=== PATIENT | male | born 1950 | race Caucasian/White ===

== ENCOUNTER 2016-09-15 06:40 | Inpatient (IN) | payer OTHER ==
[2016-09-15] MEDS ORDERED: LACTATED RINGERS 2,000 ML ONE (06:58)
[2016-09-15 07:24] LABS: ABSOLUTE NEUTROPHIL COUNT 13.5 K/mm3 (1.8-7.7); BASO # 0.1 K/mm3 (0.0-0.2); BASO % 0.3 % (0.2-1.0); HEMATOCRIT 43.7 % (32.0-52.0); HEMOGLOBIN 14.9 gm/l (14.0-18.0); IMM NEUT # 0.1 K/mm3 (0-0.2); IMM NEUT% 0.5 % (0-1); LYMPH # 2.1 (1.0-4.8); LYMPH % 12.9 % (15-45); MEAN CELL VOLUME 90.9 fl (80.0-94.0); MEAN CORPUSCULAR HGB CONC 34.1 g/dl (33.0-37.0); MEAN PLATELET VOLUME 9.8 fl (7.4-10.4); MONO # 0.9 (0.0-0.8); MONO % 5.2 % (4-12); NEUT % 81.1 % (43-75); PLATELET COUNT 335 K/mm3 (130-400); RED CELL DISTRIBUTION WIDTH 12.9 % (11.5-14.5); SPECIFIC GRAVITY 1.025 (1.001-1.030); URINE BILIRUBIN NEGATIVE (NEGATIVE); URINE BLOOD 2+ (NEGATIVE); URINE GLUCOSE (UA) NEGATIVE (NEGATIVE); URINE LEUKOCYTE ESTERASE TRACE (NEGATIVE); URINE NITRITE NEGATIVE (NEGATIVE); URINE PROTEIN 1+ (NEGATIVE); URINE UROBILINOGEN NORMAL (0-1 mg/dl)
[2016-09-15 07:26] LABS: URINE APPEARANCE CLEAR; URINE COLOR AMBER
[2016-09-15 07:31] LABS: URINE BACTERIA 2+; URINE MUCUS 1+
[2016-09-15 07:32] LABS: URINE AMORPHOUS SEDIMENT FEW
[2016-09-15 07:35] LABS: INR 1.43; PROTHROMBIN TIME 15.3 SECONDS (9.3-11.4)
[2016-09-15 07:41] LABS: ALB/GLOB RATIO 1.3 (>1.0); ALBUMIN 4.3 gm/dL (3.5-5.7); CALCIUM 9.2 mg/dL (8.6-10.3)
--- NOTE | 2016-09-15 08:19 | RAD ---
Exam: Portable chest COMPARISON: None INDICATION: Fever and vomiting. FINDINGS: Semierect AP portable view of the chest demonstrates low lung volumes, precluding evaluation of the lung bases. Cardiac silhouette appears to be within normal limits. Upper lungs are clear. Bones of the chest wall within normal limits. There is no free air under the diaphragm. IMPRESSION: No acute pulmonary process.
[2016-09-15] MEDS ORDERED: IOPAMIDOL 300 (61%) 150 ML VIAL IV ONE (09:36)
--- NOTE | 2016-09-15 10:18 | CT ---
Exam: CT abdomen and pelvis with contrast COMPARISON: Chest radiograph same day. INDICATION: Vomiting and fever. TECHNIQUE: CT examination of the abdomen and pelvis was obtained following the administration 125 mL Isovue-300 intravenous contrast. FINDINGS: Examination is slightly limited due to motion artifact. There is a focus of airspace disease within the left lower lobe. This was not seen on earlier chest radiograph due to hypoventilation. Correlate for signs and symptoms of pneumonia. There are subacute/healing fractures of the left anterolateral sixth and seventh ribs, lateral 10th rib and posterior 11th and 12th ribs. Subacute fractures are seen within the posterior right 11th and 12th ribs, with more chronic appearing fractures within the medial right 11th and 12th ribs. There is no pleural effusion. The rectum is significantly distended with stool. There is mild wall thickening of the rectum. There is no bowel obstruction, free air or free intraperitoneal fluid. The distal esophagus is noted to be thickened. The urinary bladder is decompressed by a Puente catheter. There is no hydronephrosis. There is minor nonspecific perinephric stranding which appears symmetric. Kidneys enhance appropriately. Subcentimeter low-density lesion is seen within the posterior upper pole the right kidney which is too small to characterize but likely a cyst. The gallbladder is absent. The liver, spleen, pancreas and adrenal glands are unremarkable. Atheromatous but nonaneurysmal abdominal aorta and iliac arteries. Old healed left anterior pubic ramus fracture is identified. Hemangioma is noted at L1, benign lesion. No worrisome lytic or blastic osseous lesion is identified. Degenerative disc disease is present at the lumbosacral junction. IMPRESSION: 1. Asymmetric airspace disease within the left lower lobe, more than expected for atelectasis, correlate for signs and symptoms of pneumonia. 2. The rectum is significantly distended with stool, however there is no evidence of bowel obstruction. Mild wall thickening of the rectum is noted compatible with proctitis. 3. Thickening of the distal esophagus. 4. Urinary bladder decompressed by a Puente catheter. No hydronephrosis. 5. Post cholecystectomy. 6. Several subacute and old rib fractures and old left inferior pubic ramus fracture. Report was uploaded to the EMR at 1014 hours 09/15/2016.
[2016-09-15] MEDS ORDERED: LEVOFLOXACIN 750 MG/D5W 150 ML 150 ML IV ONE (11:02)
[2016-09-15] MEDS ORDERED: METRONIDAZOLE 500 MG/NS 100 ML 100 ML IV ONE (11:02)
[2016-09-15] MEDS ORDERED: SODIUM CHLORIDE 0.9% 100 ML IV ONE (11:52)
[2016-09-15 13:14] VITALS: BMI 22.2
[2016-09-15] MEDS: D5 1/2NS with 20 mEq KCL 1,000 ML IV SCH (13:59)
[2016-09-15] MEDS ORDERED: MENTHOL/CETYLPYRD 1 EACH LOZENGE PO PRN (14:02)
[2016-09-15] MEDS ORDERED: SODIUM CHLORIDE 0.9% 100 ML IV PRN (14:02)
[2016-09-15] MEDS ORDERED: BLISTEX LIPSTICK 1 EACH TP PRN (14:02)
[2016-09-15] MEDS ORDERED: BISACODYL 5 MG TABLET.EC PO PRN (14:02)
[2016-09-15] MEDS ORDERED: MAGNESIUM HYDROXIDE 30 ML UDCUP PO PRN (14:02)
[2016-09-15] MEDS ORDERED: BISACODYL 10 MG SUP PR PRN (14:02)
[2016-09-15] MEDS ORDERED: ALBUTEROL/IPRATROPIUM 2.5/0.5 MG 3 ML/EACH DOSE NEB PRN (14:18)
[2016-09-15] MEDS: FLECAINIDE ACETATE 50 MG TABLET PO SCH (15:59)
[2016-09-15] MEDS: METOPROLOL TARTRATE 25 MG TABLET PO SCH ×2 (16:00→21:54)
[2016-09-15] MEDS: CARBIDOPA/LEVODOPA 25/100 1 EACH TABLET PO SCH ×2 (16:01→21:53)
[2016-09-15] MEDS: SODIUM CHLORIDE 0.9% 500 ML IV SCH ×5 (16:02→22:32)
[2016-09-15] MEDS: PANTOPRAZOLE SODIUM 40 MG VIAL IV SCH (16:04)
[2016-09-15] MEDS: ENOXAPARIN SODIUM 40 MG/0.4 ML SYRINGE SUB-Q SCH (16:04)
[2016-09-15] MEDS: OXYCODONE HCL 5 MG TABLET PO PRN (16:09)
[2016-09-15 16:22] LABS: HEMATOCRIT 36.1 % (32.0-52.0); HEMOGLOBIN 12.5 gm/l (14.0-18.0); MEAN CELL VOLUME 90.3 fl (80.0-94.0); MEAN CORPUSCULAR HEMOGLOBIN 31.3 pg (27.0-31.0); MEAN CORPUSCULAR HGB CONC 34.6 g/dl (33.0-37.0); RED CELL DISTRIBUTION WIDTH 12.8 % (11.5-14.5)
--- NOTE | 2016-09-15 16:24 | HP ---
[place] MOTA [id number] DATE OF ADMISSION: September 15, 2016 CHIEF COMPLAINT: Fever and hematemesis. HISTORY OF PRESENT ILLNESS: The patient is a 66-year-old male who is reported to have been hospitalized for influenza at [facility] and was discharged about September 11, 2016. He developed hematemesis with coffee ground appearing vomit, and was sent to [facility] Emergency Department for fever and vomiting. In the emergency room, he was noted to have elevated white count. Initial hemoccult was negative but he later had a larger volume hematemesis and some melena and this was heme positive. CT of the abdomen was done and this appeared to show a pneumonia. He was referred to the hospitalist service for further care. PAST MEDICAL HISTORY: Remarkable for: 1. Anxiety. 2. Alcohol use with quitting in 2012. 3. Hypertension. 4. Restless leg syndrome. 5. Dyslipidemia. 6. Esophagogastroduodenoscopy with a previous upper and lower endoscopy in 2013 showing some mild chronic non-atrophic gastritis. 7. Lewy body dementia with Parkinsonian features. 8. Decubitus ulcers on his buttocks and coccyx. 9. Atrial fibrillation not a candidate for anticoagulation due to his fall risk. PAST SURGICAL HISTORY: 1. Appendectomy. 2. Cholecystectomy. 3. Endoscopy showing gastritis, duodenitis but no varices. ALLERGIES: Listed as AMPICILLIN. MEDICATIONS: His home medicines from his discharge list at [facility] show: 1. Cogentin 1mg at bedtime. 2. Sinemet 25/100 half orally three times daily. 3. Cholecalciferol 50,000 orally on . 4. Diazepam 2 mg half orally at 2 p.m. and 9 p.m. 5. Tambocor 50 mg twice daily. 6. Folic acid 1 mg orally daily. 7. Prinivil 10 mg orally daily. 8. Lopressor 25 mg orally three times daily. 9. Tamiflu 75 mg orally twice daily. 10. Oxycodone 5 to 15 mg orally every four hours as needed. 11. Pyridoxine 100 mg daily. 12. Seroquel 50 mg orally twice daily. 13. Aciphex 20 mg orally daily. 14. Rozerem 8 mg orally at bedtime. 15. Rapaflo 8 mg orally daily. SOCIAL HISTORY: He is currently a resident at [facility]. He is . He has a history of alcoholism but quit a couple of years ago. FAMILY HISTORY: Not obtainable. REVIEW OF SYSTEMS: Not obtainable. PHYSICAL EXAM: GENERAL: Patient is a slightly cachectic appearing male with evidence of atrophy of muscles throughout who occasionally answers somewhat but it is uncertain if his answers are correct. He coughs occasionally but does not appear to be in any respiratory distress. VITAL SIGNS: Show temperature 100.7, pulse 92, blood pressure 130/73, respirations 22, 93% saturation on room air. HEAD: Demonstrates temporal atrophy. Eyes are unremarkable, but on exam he appears to have significant difficulty moving them not following a light for example. EARS: The right has cerumen. The left is not able to visualized due to body-wide rigidity consistent with his Parkinson's diagnose. NECK: His neck appears to be fairly stiff so a neck mobility is not able to be assessed. No masses or adenopathy. LUNGS: With slightly coarse breath sounds bilaterally. HEART: Mostly regular but distant. Difficult to auscultate. ABDOMEN: Soft, bowel sounds appear to be normal. No rebound. EXTREMITIES: His legs with atrophy noted but no edema. Heels with some diffuse erythema which is blanching, otherwise feet without ulceration. His buttocks are reported to have stage 1 to early stage 2 ulcerations in the coccyx and just to the right of the coccyx toward the buttock and some redness noted on the left. Taken from a nursing report so far. GENITOURINARY: Exam is deferred. NEUROLOGIC: His cranial nerves unable to assess. He does somewhat answer some in a difficult to understand tone. His reports this is close to baseline status. He has difficulty following commands. His right arm demonstrates a Parkinsonian tremor at rest. Some generalized rigidity is noted as well. LABORATORY: His labs showed a white blood cell count of 16.6, hemoglobin 14.9, MCV of 90.9, platelets 335. INR is 1.43. Lactate 1.7. Chemistry, sodium 141, potassium 3.3, chloride 97, carbon dioxide 27, BUN 21, creatinine 0.8, glucose 195, calcium 9.2, total bilirubin 0.8. Liver enzymes normal. Lipase 48. Urinalysis specific gravity 1.025, 1+ protein, negative glucose, 3+ ketones, 2+ blood, trace leukocyte esterase, 5 to 10 red cells, 3 to 5 white cells, 2 to 3 epithelial cells, 2+ bacteria, 1+ mucous. IMAGIN. Chest x-ray shows no acute pulmonary process. 2. However, CT of the abdomen and pelvis shows asymmetric airspace disease within the left lower lobe more than expected, correlate for signs and symptoms of pneumonia. The rectum is significantly distended with stool but no evidence of bowel obstruction. Mild wall thickening of the rectum is noted. Thickening of the distal esophagus. Urinary bladder decompressed by Puente catheter, no hydronephrosis. Post cholecystectomy and several subacute and old rib fractures and left inferior pubic ramus fracture. ELECTROCARDIOGRAM: Electrocardiogram shows atrial fibrillation, 98 beats per minute, right bundle branch block is suggested. T wave abnormalities suggested anteriorly although this is difficult to assess due to marked tremor. QRS duration 141, QTc 474, QRS axis -5. ASSESSMENT AND PLAN: 1. Pneumonia. Concern for aspiration versus hospital acquired pneumonia versus post influenza. We will continue on the Tamiflu. He was initially started on Levaquin and metronidazole in the emergency department, but we will consider revision due to prolonged QT suggested on electrocardiogram. Plan nebulizers and oxygen as needed. 2. Lewy body disease with Parkinsonism. Continue Seroquel and Sinemet. We will try to avoid medications which could worsen symptoms. 3. Acute upper gastrointestinal bleed suspect. Will monitor hemoglobin and hematocrit. Plan IV Protonix. He previously had a scope done in 2013 showing duodenitis and gastritis but no varices. Biopsy was not particularly remarkable. His would be open to transfusion if significant blood loss anemia noted. 4. Decubitus ulcers. [employer] consult. Reposition frequently. We will try to get an air bed for him and monitor. 5. Remote history of alcohol use. Withdrawal not thought to be an issue as he quit a number of years ago. 6. Hypertension, we will continue medications if blood pressure is elevated. 7. Atrial fibrillation. Not on anticoagulation due to fall risk but we will continue on flecainide and metoprolol. 8. Venous thrombosis prophylaxis. Mechanical only due to gastrointestinal bleed. 9. Elevated INR. He has a history of alcoholism but quit four years ago. He does not have a diagnosis of liver dysfunction. We will recheck INR later today and consider for fresh frozen plasma or other replacement. 10. DO NOT RESUSCITATE status per [employer] and confirmed with his today. cc: Ruddy Mitchell, M.Nikki Logan M.D.
[2016-09-15] MEDS ORDERED: PUMP TUBING ONE (16:25)
[2016-09-15] MEDS: CEFTRIAXONE 1 GRAM DUPLEX 1 G in Premix (D5W) 50 ml 1 EACH IV SCH (16:31)
[2016-09-15] MEDS: DOXYCYCLINE HYCLATE 100 MG in NS 0.9% (MINI-BAG PLUS) 100 ML IV SCH (16:38)
[2016-09-15 16:39] LABS: INR 1.49
[2016-09-15] MEDS: VANCOMYCIN HCL 1.5 G in SODIUM CHLORIDE 0.9% 500 ML IV SCH (17:11)
[2016-09-15] MEDS: METRONIDAZOLE 500 MG/NS 100 ML 500 MG in Premix (NS) 100 ml 1 EACH IV SCH (20:12)
[2016-09-15] MEDS ORDERED: DIAZEPAM 2 MG TABLET PO SCH (21:00)
[2016-09-15] MEDS ORDERED: BENZTROPINE MESYLATE 1 MG TABLET PO SCH (21:00)
[2016-09-15] MEDS ORDERED: PHYTONADIONE 10 MG/1 ML AMP SUB-Q ONE (21:38)
[2016-09-15] MEDS ORDERED: ACETAMINOPHEN 325 MG TABLET PO PRN (21:39)
[2016-09-15] MEDS ORDERED: ACETAMINOPHEN 650 MG SUP PR PRN (21:39)
[2016-09-15] MEDS: Oseltamivir Phosphate 75 MG CAP PO SCH (21:53)
[2016-09-15] MEDS: DOCUSATE SODIUM 100 MG CAPSULE PO SCH (21:54)
[2016-09-15] MEDS: QUETIAPINE FUMARATE 50 MG TABLET PO SCH (22:05)
[2016-09-16] MEDS: D5 1/2NS with 20 mEq KCL 1,000 ML IV SCH ×2 (00:22→10:31)
[2016-09-16] MEDS: DOXYCYCLINE HYCLATE 100 MG in NS 0.9% (MINI-BAG PLUS) 100 ML IV SCH (04:08)
[2016-09-16] MEDS: METRONIDAZOLE 500 MG/NS 100 ML 500 MG in Premix (NS) 100 ml 1 EACH IV SCH ×3 (04:08→20:33)
[2016-09-16] MEDS: FLECAINIDE ACETATE 50 MG TABLET PO SCH ×2 (04:08→15:53)
[2016-09-16 06:04] LABS: BASO % 0.4 % (0.2-1.0); EOS % 0.1 % (0.9-2.9); HEMATOCRIT 30.2 % (32.0-52.0); HEMOGLOBIN 10.2 gm/l (14.0-18.0); IMM NEUT% 0.4 % (0-1); LYMPH # 2.5 (1.0-4.8); LYMPH % 22.5 % (15-45); MEAN CELL VOLUME 94.1 fl (80.0-94.0); MEAN CORPUSCULAR HEMOGLOBIN 31.8 pg (27.0-31.0); MEAN CORPUSCULAR HGB CONC 33.8 g/dl (33.0-37.0); MEAN PLATELET VOLUME 9.8 fl (7.4-10.4); MONO # 0.7 (0.0-0.8); MONO % 6.1 % (4-12); NEUT % 70.5 % (43-75); PLATELET COUNT 231 K/mm3 (130-400)
[2016-09-16 06:18] LABS: INR 1.49
[2016-09-16 06:20] LABS: ALB/GLOB RATIO 1.3 (>1.0); CALCIUM 8.2 mg/dL (8.6-10.3)
--- NOTE | 2016-09-16 07:40 | RAD ---
Exam: Portable chest COMPARISON: 09/15/[address] abdomen 09/15/2016 INDICATION: Follow-up pneumonia. FINDINGS: A semierect AP rotated portable view of the chest demonstrates low lung volumes. Left basilar airspace disease seen on yesterday's CT is not appreciated; please note it was obscured by the hemidiaphragms on yesterday's x-ray. Upper lungs are are clear. No pleural effusion. IMPRESSION: No radiographic evidence of pneumonia. Please note that the left basilar airspace disease seen on yesterday's CT was obscured by the hemidiaphragms due to to the low lung volumes.
[2016-09-16] MEDS: CARBIDOPA/LEVODOPA 25/100 1 EACH TABLET PO SCH ×3 (08:31→21:03)
[2016-09-16] MEDS: DOCUSATE SODIUM 100 MG CAPSULE PO SCH ×2 (08:31→21:08)
[2016-09-16] MEDS: QUETIAPINE FUMARATE 50 MG TABLET PO SCH ×2 (08:31→21:05)
[2016-09-16] MEDS: METOPROLOL TARTRATE 25 MG TABLET PO SCH (08:31)
[2016-09-16] MEDS: Oseltamivir Phosphate 75 MG CAP PO SCH ×2 (08:31→21:06)
[2016-09-16] MEDS: VANCOMYCIN HCL 1.5 G in SODIUM CHLORIDE 0.9% 500 ML IV SCH (10:31)
[2016-09-16] MEDS ORDERED: LEVOFLOXACIN 750 MG/D5W 150 ML 750 MG in Premix (D5W) 150 ml Bag 1 EACH IV SCH (11:30)
[2016-09-16] MEDS: Ramelteon [Rozerem] 8 MG PO SCH ×2 (12:25→21:07)
[2016-09-16] MEDS: SILODOSIN 8 MG PO SCH (12:25)
[2016-09-16] MEDS ORDERED: POTASSIUM CHLORIDE 40 MEQ in SODIUM CHLORIDE 0.9% 180 ML IV ONE (13:30)
--- NOTE | 2016-09-16 13:51 | PDOC43 ---
- Subjective Chief Complaint: fever, hematemesis Patient sitting up in bed, stiff with RUE tremor, moving eyes, does not follow commands or verbalize Subjective: Reports Other (does not verbalize) - Objective Vital Signs Temperature 99.0 F 09/16/16 11:25 Pulse Rate 66 09/16/16 11:25 Respiratory Rate 17 09/16/16 11:25 Blood Pressure 141/68 09/16/16 11:25 O2 Saturation by Pulse Oximetry 95 09/16/16 11:25 Oxygen Delivery Method Nasal Cannula Oxygen Flow Rate 2 Intake and Output 09/14/16 09/15/16 09/16/16 23:59 23:59 23:59 Intake Total 844 1243 Output Total 326 500 Balance 518 743 General: Alert, No Acute Distress HEENT: PERRLA Lungs: Other (coarse) Cardiovascular: Regular Rate and Rhythm, Normal S1, Normal S2 Abdomen: Soft, Non-Distended, No Rigid, No Tenderness, No Rebounding Extremities: No Cyanosis, No Edema, No Tenderness Neurological: Other (stiff, tremor RUE, not following commands) Psych/Mental Status: Other (does not verbalize, grimace) Laboratory 09/16/16 05:30 09/16/16 05:30 09/16/16 09/15/16 05:30 16:15 RBC 3.21 L 4.00 L MCV 94.1 H MCH 31.8 H 31.3 H PT 16.0 H 16.0 H Estimated GFR 136 H Calcium 8.2 L ALT 6 L Total Protein 5.4 L Albumin 3.0 L Current Medications: Current meds reviewed in EMR. - Problems: Assessment/Plan (1) GI bleed Qualifiers: GI bleed type/associated pathology: unspecified gastrointestinal hemorrhage type Qualifier Code: (K92.2) Gastrointestinal hemorrhage, unspecified Status: Acute Assessment/Plan: episode of hematemesis and fever at facility. Melena once hospitalized. no further episodes. Protonix infusion. Monitor closely as Hgb dropped from 14.9- 10.2. Partially dilutional (2) Influenza and pneumonia Status: Acute Assessment/Plan: Suspect aspiration. Swallow eval pending. DC Summary from [facility] notes dysphagia and 1-1 assistance. (3) Lewy body Parkinson disease Status: Chronic Assessment/Plan: with profound stiffness, dsyphagia. continue medications (4) Paroxysmal atrial fibrillation Status: Chronic Assessment/Plan: with dysphagia, may develop rapid ventricular (5) Dysphagia Qualifiers: Dysphagia type: unspecified Qualifier Code: (R13.10) Dysphagia, unspecified Status: Chronic Assessment/Plan: Identified previous, suspect progressing as aspiration pneumonia likely with current clinical picture. Discussed with the patient's who will review with family members. Options are for PEG or other feeding tube or hospice. Will reduce pill burden as much as possible (6) Anxiety Status: Chronic Assessment/Plan: continue current medications (7) Hypertension Qualifiers: Hypertension type: essential hypertension Qualifier Code: (I10) Essential (primary) hypertension Status: Chronic Assessment/Plan: continue current medications (8) Decubital ulcer Qualifiers: Pressure ulcer location: sacral region Pressure ulcer stage: unspecified pressure ulcer stage Qualifier Code: (L89.159) Pressure ulcer of sacral region, unspecified stage Status: Chronic Assessment/Plan: present on admission, due to mobility difficulties unable to assess at current time (9) Cachectic Status: Chronic Assessment/Plan: due to chronic disease and dysphagia, promotes poor healing ability
[2016-09-16] MEDS ORDERED: SODIUM CHLORIDE 0.9% FLUSH 10 ML ONE (14:15)
[2016-09-16] MEDS ORDERED: IV START KIT ONE ×2 (14:15→16:09)
[2016-09-16] MEDS: DIAZEPAM 5 MG/ML SYRINGE 2 ML IV SCH ×2 (14:22→20:43)
[2016-09-16] MEDS: PANTOPRAZOLE SODIUM 40 MG VIAL IV SCH (14:23)
[2016-09-16] MEDS: ENOXAPARIN SODIUM 40 MG/0.4 ML SYRINGE SUB-Q SCH (14:23)
[2016-09-16] MEDS: METOPROLOL TARTRATE 1 MG/ML 5ML VIAL IV SCH ×2 (15:38→23:43)
[2016-09-16] MEDS: CEFTRIAXONE 1 GRAM DUPLEX 1 G in Premix (D5W) 50 ml 1 EACH IV SCH (15:48)
[2016-09-16] MEDS ORDERED: MAGNESIUM SULFATE 2 G/50 ML 2 G in Premix (Water) 50 ml 1 EACH IV ONE (18:15)
[2016-09-16] MEDS: BENZTROPINE MESYLATE 1 MG/ML IV SCH (20:36)
[2016-09-16] MEDS ORDERED: VANCOMYCIN HCL 1.25 G in SODIUM CHLORIDE 0.9% 250 ML IV SCH (22:30)
[2016-09-17] MEDS: METRONIDAZOLE 500 MG/NS 100 ML 500 MG in Premix (NS) 100 ml 1 EACH IV SCH (03:53)
[2016-09-17] MEDS: D5 1/2NS with 20 mEq KCL 1,000 ML IV SCH ×2 (03:54→14:47)
[2016-09-17] MEDS: FLECAINIDE ACETATE 50 MG TABLET PO SCH ×2 (03:55→14:07)
[2016-09-17 06:15] LABS: ABSOLUTE NEUTROPHIL COUNT 7.6 K/mm3 (1.8-7.7); BASO % 0.2 % (0.2-1.0); EOS # 0.1 (0.0-0.5); HEMATOCRIT 30.2 % (32.0-52.0); HEMOGLOBIN 10.3 gm/l (14.0-18.0); IMM NEUT% 0.4 % (0-1); LYMPH # 1.9 (1.0-4.8); LYMPH % 18.8 % (15-45); MEAN CELL VOLUME 90.7 fl (80.0-94.0); MEAN CORPUSCULAR HEMOGLOBIN 30.9 pg (27.0-31.0); MEAN CORPUSCULAR HGB CONC 34.1 g/dl (33.0-37.0); MEAN PLATELET VOLUME 9.9 fl (7.4-10.4); MONO # 0.6 (0.0-0.8); MONO % 5.5 % (4-12); NEUT % 74.1 % (43-75); PLATELET COUNT 244 K/mm3 (130-400); RED CELL DISTRIBUTION WIDTH 12.8 % (11.5-14.5)
[2016-09-17 06:18] LABS: INR 1.19; PROTHROMBIN TIME 12.6 SECONDS (9.3-11.4)
[2016-09-17 06:25] LABS: ALB/GLOB RATIO 1.2 (>1.0); ALBUMIN 2.9 gm/dL (3.5-5.7); MAGNESIUM 1.7 mg/dL (1.9-2.7)
[2016-09-17] MEDS ORDERED: MAGNESIUM SULFATE 2 G/50 ML 2 G in Premix (Water) 50 ml 1 EACH IV ONE (06:47)
[2016-09-17] MEDS ORDERED: POTASSIUM CHLORIDE 40 MEQ in SODIUM CHLORIDE 0.9% 180 ML IV ONE (06:48)
[2016-09-17] MEDS ORDERED: MAGNESIUM SULFATE 1 G/100 ML 100 ML IV ONE ×2 (07:39→09:38)
[2016-09-17] MEDS: MAGNESIUM SULFATE 1 G/100 ML 1 G in PREMIX BAG 1 EACH IV SCH ×2 (07:41→09:41)
[2016-09-17] MEDS: METOPROLOL TARTRATE 1 MG/ML 5ML VIAL IV SCH ×2 (07:43→14:48)
[2016-09-17] MEDS ORDERED: POTASSIUM CHLORIDE 40 MEQ in SODIUM CHLORIDE 0.9% 250 ML IV ONE (08:00)
[2016-09-17] MEDS ORDERED: PUMP TUBING ONE (08:04)
[2016-09-17] MEDS: DOCUSATE SODIUM 100 MG CAPSULE PO SCH ×2 (08:09→20:34)
[2016-09-17] MEDS: CARBIDOPA/LEVODOPA 25/100 1 EACH TABLET PO SCH ×3 (09:43→21:51)
[2016-09-17] MEDS: QUETIAPINE FUMARATE 50 MG TABLET PO SCH ×2 (09:44→20:34)
[2016-09-17] MEDS: Oseltamivir Phosphate 75 MG CAP PO SCH (09:45)
[2016-09-17] MEDS: SILODOSIN 8 MG PO SCH (09:52)
--- NOTE | 2016-09-17 10:50 | PDOC43 ---
- Subjective Chief Complaint: fever, hematemesis Patient awake, working with therapy Subjective: Reports Pain Tolerable, Denies Shortness of Breath, Denies Abdominal Pain - Objective Vital Signs Temperature 98.8 F 09/17/16 07:00 Pulse Rate 80 09/17/16 07:00 Respiratory Rate 36 09/17/16 07:00 Blood Pressure 133/71 09/17/16 07:00 O2 Saturation by Pulse Oximetry 97 09/17/16 07:00 Oxygen Delivery Method Nasal Cannula Oxygen Flow Rate 1 Intake and Output 09/15/16 09/16/16 09/17/16 23:59 23:59 23:59 Intake Total 844 2693 1585 Output Total 326 1050 1050 Balance 518 1643 535 General: Alert, Cooperative, No Acute Distress HEENT: Atraumatic, Other (mucus membranes dry), No Mucous membr. moist/pink Lungs: Clear to Auscultation Bilaterally, Diminished at Bases Cardiovascular: Regular Rate and Rhythm, Normal S1, Normal S2 Abdomen: Soft, Non-Distended, No Firm, No Rigid, No Tenderness, No Rebounding Neurological: Other (stiff, tremors) Laboratory 09/17/16 05:30 09/17/16 05:30 09/17/16 09/16/16 05:30 05:30 RBC 3.33 L PT 12.6 H Anion Gap 6 L Estimated GFR 167 H Calcium 8.0 L Magnesium 1.7 L 1.6 L ALT 6 L Total Protein 5.3 L Albumin 2.9 L Current Medications: Current meds reviewed in EMR. - Problems: Assessment/Plan (1) Aspiration pneumonia due to food (regurgitated) Qualifiers: Laterality: unspecified laterality Lung location: unspecified part of lung Qualifier Code: (J69.0) Pneumonitis due to inhalation of food and vomit Status: Acute Assessment/Plan: Slow improvement with very little PO intake and antibiotics. Will DC ABx burden Working on plan for dysphagia and swallow evaluation Cultures NGTD (2) GI bleed Qualifiers: GI bleed type/associated pathology: unspecified gastrointestinal hemorrhage type Qualifier Code: (K92.2) Gastrointestinal hemorrhage, unspecified Status: Acute Assessment/Plan: episode of hematemesis and fever at facility. Melena once hospitalized. no further episodes. Protonix infusion. Monitor closely as Hgb dropped from 14.9- 10.2, stable overnight. Partially dilutional (3) Lewy body Parkinson disease Status: Chronic Assessment/Plan: with profound stiffness, dsyphagia. continue medications (4) Paroxysmal atrial fibrillation Status: Chronic Assessment/Plan: with dysphagia, may develop rapid ventricular (5) Dysphagia Qualifiers: Dysphagia type: unspecified Qualifier Code: (R13.10) Dysphagia, unspecified Status: Chronic Assessment/Plan: Identified previous, suspect progressing as aspiration pneumonia likely with current clinical picture. Discussed with the patient's who will review with family members. Options are for PEG or other feeding tube or hospice. Will reduce pill burden as much as possible. Swallow evaluation contradictory to nursing cares. Speech recommends NPO. Nursing able to provide thickened orange juice and pills with pudding. Doubtful patient able to maintain caloric intake Requesting formal speech therapy report from prior hospitalization. Reviewed with the options including a NGT tube which is not a [facility] solution. PEG with side effects and continued aspiration along with it not extending life expectancy. (6) Anxiety Status: Chronic Assessment/Plan: continue current medications (7) Hypertension Qualifiers: Hypertension type: essential hypertension Qualifier Code: (I10) Essential (primary) hypertension Status: Chronic Assessment/Plan: continue current medications (8) Decubital ulcer Qualifiers: Pressure ulcer location: sacral region Pressure ulcer stage: unspecified pressure ulcer stage Qualifier Code: (L89.159) Pressure ulcer of sacral region, unspecified stage Status: Chronic Assessment/Plan: present on admission, due to mobility difficulties unable to assess at current time (9) Cachectic Status: Chronic Assessment/Plan: due to chronic disease and dysphagia, promotes poor healing ability (10) Hematuria Status: Acute Assessment/Plan: moody trauma Will monitor
[2016-09-17] MEDS: CLINDAMYCIN 600 MG PREMIX 600 MG in Premix (D5W) 50 ml 1 EACH IV SCH ×2 (11:29→20:03)
[2016-09-17] MEDS: DIAZEPAM 5 MG/ML SYRINGE 2 ML IV SCH (14:14)
[2016-09-17] MEDS: ENOXAPARIN SODIUM 40 MG/0.4 ML SYRINGE SUB-Q SCH (14:14)
[2016-09-17] MEDS: PANTOPRAZOLE SODIUM 40 MG VIAL IV SCH (14:48)
[2016-09-17] MEDS: CEFTRIAXONE 1 GRAM DUPLEX 1 G in Premix (D5W) 50 ml 1 EACH IV SCH (15:42)
[2016-09-17] MEDS: OXYCODONE HCL 5 MG TABLET PO PRN (20:33)
[2016-09-17] MEDS: BENZTROPINE MESYLATE 1 MG/ML IV SCH (20:34)
[2016-09-17] MEDS: Ramelteon [Rozerem] 8 MG PO SCH (20:35)
[2016-09-17] MEDS: DIAZEPAM 2 MG TABLET PO SCH (21:49)
[2016-09-17] MEDS: METOPROLOL TARTRATE 25 MG TABLET PO SCH (21:49)
[2016-09-18] MEDS: D5 1/2NS with 20 mEq KCL 1,000 ML IV SCH ×4 (01:34→20:08)
[2016-09-18] MEDS: CLINDAMYCIN 600 MG PREMIX 600 MG in Premix (D5W) 50 ml 1 EACH IV SCH ×3 (02:38→20:08)
[2016-09-18] MEDS: FLECAINIDE ACETATE 50 MG TABLET PO SCH ×2 (02:38→15:23)
[2016-09-18] MEDS: OXYCODONE HCL 5 MG TABLET PO PRN ×3 (02:46→21:33)
[2016-09-18 06:38] LABS: HEMATOCRIT 29.7 % (32.0-52.0); HEMOGLOBIN 10.2 gm/l (14.0-18.0); MEAN CORPUSCULAR HEMOGLOBIN 30.9 pg (27.0-31.0); MEAN CORPUSCULAR HGB CONC 34.3 g/dl (33.0-37.0); RED CELL DISTRIBUTION WIDTH 12.9 % (11.5-14.5)
[2016-09-18 06:54] LABS: ALB/GLOB RATIO 1.2 (>1.0); ALBUMIN 2.8 gm/dL (3.5-5.7); BLOOD UREA NITROGEN 4 mg/dL (7-25); BUN/CREATININE RATIO 7 (6-20); GLOMERULAR FILTRATION RATE 136 mL/min (60-85); MAGNESIUM 1.8 mg/dL (1.9-2.7)
[2016-09-18 06:57] LABS: ALT/SGPT < 5 U/L (7-52)
[2016-09-18] MEDS ORDERED: PUMP TUBING ONE ×3 (08:27→21:50)
[2016-09-18] MEDS: QUETIAPINE FUMARATE 50 MG TABLET PO SCH ×2 (08:51→21:33)
[2016-09-18] MEDS: CARBIDOPA/LEVODOPA 25/100 1 EACH TABLET PO SCH ×3 (08:51→21:29)
[2016-09-18] MEDS: METOPROLOL TARTRATE 25 MG TABLET PO SCH ×3 (08:52→21:29)
[2016-09-18] MEDS: SILODOSIN 8 MG PO SCH (08:52)
[2016-09-18] MEDS: DOCUSATE SODIUM 100 MG CAPSULE PO SCH ×2 (09:37→21:31)
--- NOTE | 2016-09-18 11:23 | PDOC43 ---
- Subjective Chief Complaint: fever, hematemesis Patient reported to be doing much better, answers questions, sometimes correctly. Before was having difficulty with any answer. This am, responds well to me, answers. Words a bit slurred, but much improved. - Objective Vital Signs Temperature 98.9 F 09/18/16 07:01 Pulse Rate 66 09/18/16 07:01 Respiratory Rate 20 09/18/16 07:01 Blood Pressure 97/52 09/18/16 07:01 O2 Saturation by Pulse Oximetry 100 09/18/16 07:01 Oxygen Delivery Method Room Air Oxygen Flow Rate 0 Vital Signs Last 12 Hours Temp Pulse Resp BP Pulse Ox 09/18/16 07:01 98.9 F 66 20 97/52 100 09/18/16 05:06 99.2 F 64 16 140/64 95 09/18/16 04:28 16 09/17/16 23:47 98.0 F 70 94 145/62 94 Intake and Output 09/16/16 09/17/16 09/18/16 23:59 23:59 23:59 Intake Total 2693 1853 2875 Output Total 1050 2151 1701 Balance 1643 -298 1174 Intake & Output 09/17/16 09/18/16 09/18/16 23:59 07:59 15:59 Intake Total 0 2875 Output Total 1101 1701 Balance -1101 1174 Intake: PO Intake 0 30 IV Fluids 2845 Output: [place] Output 1100 1700 Number of Stool Diapers 1 1 Other: Unmeasured Stool Amount Medium Number of Stools 2 Unmeasured Diaper Stool Medium Small General: Alert, No Oriented x3 (says "[place]" for location), No Acute Distress Lungs: Clear to Auscultation Bilaterally (air movement fairly good bilat.) Cardiovascular: Regular Rate and Rhythm Abdomen: Soft, Normal Bowel Sounds, Non-Distended Extremities: Other (SCDs), No Edema Skin: Other (buttocks, with unstageable but superficial appearing eschar on L 0.5 cm, R with 1.75 eschar unstageable, but also appears superficial without significant erythema. Heels had been erythematous, but appear better than admit. ) Neurological: Normal Speech (improved.), Other (resting tremor on R hand) Psych/Mental Status: Other (answers me, able to tell me 's name.) Laboratory 09/18/16 05:30 09/18/16 05:30 09/18/16 05:30 RBC 3.30 L BUN 4 L Estimated GFR 136 H Calcium 8.0 L Magnesium 1.8 L AST 11 L ALT < 5 L Total Protein 5.2 L Albumin 2.8 L Current Medications: Current meds reviewed in EMR. Active Medications Acetaminophen (Tylenol) 650 mg PO Q4H PRN PRN Reason: Pain or Temperature > 100.5 F Acetaminophen (Tylenol) 650 mg MO Q4H PRN PRN Reason: Pain or Temperature > 100.5 F Last Admin: 09/15/16 21:53 Dose: 650 mg Albuterol/Ipratropium (Duoneb) 3 ml NEB Q6H PRN PRN Reason: Wheezing Benzocaine/Menthol (Cepacol) 1 each PO PRN PRN PRN Reason: Sore Throat Benztropine Mesylate (Cogentin) 1 mg IV BEDTIME [facility] Last Admin: 09/17/16 20:34 Dose: 1 mg Bisacodyl (Dulcolax) 10 mg [place] DAILY PRN PRN Reason: Constipation Bisacodyl (Dulcolax) 5 mg PO DAILY PRN PRN Reason: Constipation Carbidopa/Levodopa (Sinemet 25/100) 0.5 each PO TID [facility] Last Admin: 09/18/16 08:51 Dose: 0.5 each Diazepam (Valium) 1 mg PO 1400,2100 [facility] Last Admin: 09/17/16 21:49 Dose: 1 mg Docusate Sodium (Colace) 100 mg PO BID [facility] Last Admin: 09/18/16 09:37 Dose: Not Given Enoxaparin Sodium (Lovenox) 40 mg SUB-Q Q24H [facility] Last Admin: 09/17/16 14:14 Dose: 40 mg Flecainide Acetate (Tambobor) 50 mg PO 0300,1500 [facility] Last Admin: 09/18/16 02:38 Dose: 50 mg Potassium Chloride/Dextrose/Sod Cl (D51/2ns With 20 Meq Kcl) 1,000 mls @ 100 mls/hr IV .Q10H [facility] Last Admin: 09/18/16 08:35 Dose: 100 mls/hr Sodium Chloride (Sodium Chloride 0.9%) 100 mls @ 25 mls/hr IV PRN PRN PRN Reason: Flush Last Admin: 09/15/16 16:32 Dose: 25 mls/hr Ceftriaxone Sodium/Dextrose 1 (g/ Premix (D5W) 50 ml) 50 mls @ 100 mls/hr IV Q24H [facility] Last Admin: 09/17/16 15:42 Dose: 100 mls/hr Clindamycin HCl/Dextrose 600 (mg/ Premix (D5W) 50 ml) 50 mls @ 150 mls/hr IV Q8H [facility] Last Admin: 09/18/16 11:08 Dose: 150 mls/hr Magnesium Hydroxide (Milk Of Magnesia) 30 ml PO DAILY PRN PRN Reason: Constipation Metoprolol Tartrate (Lopressor) 25 mg PO TID [facility] Last Admin: 09/18/16 08:52 Dose: 25 mg Miscellaneous (Ramelteon [Rozerem]) 8 mg PO BEDTIME [facility] Last Admin: 09/17/16 20:35 Dose: 8 mg Miscellaneous (Silodosin [Rapaflo 8 Mg Capsule]) 8 mg PO DAILY [facility] Last Admin: 09/18/16 08:52 Dose: 8 mg Oxycodone HCl (Roxicodone) 2.5 - 7.5 mg PO Q4H PRN PRN Reason: Pain (Severe) Last Admin: 09/18/16 02:46 Dose: 5 mg Pantoprazole Sodium (Protonix) 40 mg IV Q24H [facility] Last Admin: 09/17/16 14:48 Dose: 40 mg Petrolatum/Paraffin/Mineral Oil (Blistex) 1 each TP PRN PRN PRN Reason: Dry and/or chapped lips Quetiapine Fumarate (Seroquel) 50 mg PO BID [facility] Last Admin: 09/18/16 08:51 Dose: 50 mg Sodium Chloride (Normal Saline 10ml Flush) 10 ml IV Q8HR [facility] Last Admin: 09/18/16 09:37 Dose: Not Given Sodium Chloride (Normal Saline 10ml Flush) 10 ml IV PRN PRN Last Admin: 09/17/16 14:47 Dose: 10 ml - Problems: Assessment/Plan (1) Aspiration pneumonia due to food (regurgitated) Qualifiers: Laterality: unspecified laterality Lung location: unspecified part of lung Qualifier Code: (J69.0) Pneumonitis due to inhalation of food and vomit Status: AcuteAssessment/Plan: Some improvement with low PO intake and antibiotics, seems to have had a good improvement since yesterday. On Clindamycin Working on plan for dysphagia and repeat swallow evaluation Cultures NGTD (2) GI bleed Qualifiers: GI bleed type/associated pathology: unspecified gastrointestinal hemorrhage type Qualifier Code: (K92.2) Gastrointestinal hemorrhage, unspecified Status: AcuteAssessment/Plan: Suspect upper GI bleed. episode of hematemesis and fever at facility, Melena here at hospital, but no further episodes. On Protonix infusion. Hgb dropped from 14.9->>10.2, stable overnight. Not pursuing repeat endoscopy. (3) Influenza and pneumonia Status: AcuteAssessment/Plan: Recent influenza, but suspect aspiration. Swallow eval pending. DC Summary from [facility] notes dysphagia and 1-1 assistance. Swallow evaluation had suggested pills in pudding. Nursing able to provided thickened orange juice and pills with pudding. Concerned patient may not be able to get adequate caloric requirements orally. Discussion with regarding PEG in process, will be rechecking speech eval, as he is speaking much better today. (4) Dysphagia Qualifiers: Dysphagia type: unspecified Qualifier Code: (R13.10) Dysphagia, unspecified Status: ChronicAssessment/Plan: Identified previous, suspect progressing as aspiration pneumonia likely with current clinical picture. Discussed with the patient's who will review with family members. Options are for PEG or other feeding tube or hospice. Will reduce pill burden as much as possible. Swallow evaluation contradictory to nursing cares. Speech recommends NPO. Nursing able to provide thickened orange juice and pills with pudding. Doubtful patient able to maintain caloric intake Requesting formal speech therapy report from prior hospitalization. Reviewed with the options including a NGT tube which is not a lobsterman solution. PEG with side effects and continued aspiration along with it not extending life expectancy. (5) Cachectic Status: ChronicAssessment/Plan: Cachexia, due to chronic disease and dysphagia, with concern for poor healing ability (6) Lewy body Parkinson disease Status: ChronicAssessment/Plan: with profound stiffness, dsyphagia. continue medications (7) Paroxysmal atrial fibrillation Status: ChronicAssessment/Plan: monitoring for rapid HR. SO far, HR well controlled. Previously on anticoagulation, but would consider DC (8) Decubital ulcer Qualifiers: Pressure ulcer location: buttock Pressure ulcer stage: unstageable Laterality: unspecified laterality Qualifier Code: (L89.300) Pressure ulcer of unspecified buttock, unstageable Status: ChronicAssessment/Plan: present on admission, bilateral medial buttocks, Unstageable, but appear to be resolving Stage II ulcerations, 0.5 cm on L, 1.75 cm on R Continue care, appear to be healing. VTE Prophylaxis: mechanical Disposition: Hope to be able to DC in the next 1-2 days, appreciate home health care social worker care. Additional Comments: nutrition: pt with limited oral intake. Rechecking with speech, but still concerned about longer term needs. Spoke with today, she will discuss with family about whether PEG desired.
[2016-09-18] MEDS: DIAZEPAM 2 MG TABLET PO SCH ×2 (13:52→21:28)
[2016-09-18] MEDS: ENOXAPARIN SODIUM 40 MG/0.4 ML SYRINGE SUB-Q SCH (13:54)
[2016-09-18] MEDS: PANTOPRAZOLE SODIUM 40 MG VIAL IV SCH (13:54)
[2016-09-18] MEDS: CEFTRIAXONE 1 GRAM DUPLEX 1 G in Premix (D5W) 50 ml 1 EACH IV SCH (15:24)
[2016-09-18] MEDS: POTASSIUM CHLORIDE 40 MEQ in SODIUM CHLORIDE 0.9% 500 ML IV ONE ×2 (20:16→21:11)
[2016-09-18] MEDS ORDERED: MAGNESIUM SULFATE 2 G/50 ML 2 G in Premix (Water) 50 ml 1 EACH IV ONE (20:30)
[2016-09-18] MEDS: Ramelteon [Rozerem] 8 MG PO SCH (21:27)
[2016-09-18] MEDS: BENZTROPINE MESYLATE 1 MG/ML IV SCH (21:33)
[2016-09-18] MEDS ORDERED: SODIUM CHLORIDE 0.9% FLUSH 10 ML ONE (22:38)
[2016-09-18] MEDS ORDERED: IV START KIT ONE (22:38)
[2016-09-19] MEDS: OXYCODONE HCL 5 MG TABLET PO PRN ×3 (01:44→12:04)
[2016-09-19] MEDS: CLINDAMYCIN 600 MG PREMIX 600 MG in Premix (D5W) 50 ml 1 EACH IV SCH (03:10)
[2016-09-19] MEDS: FLECAINIDE ACETATE 50 MG TABLET PO SCH ×2 (04:02→14:48)
[2016-09-19 05:58] LABS: ABSOLUTE NEUTROPHIL COUNT 4.5 K/mm3 (1.8-7.7); BASO % 0.4 % (0.2-1.0); EOS # 0.2 (0.0-0.5); EOS % 2.3 % (0.9-2.9); HEMATOCRIT 29.3 % (32.0-52.0); HEMOGLOBIN 10.1 gm/l (14.0-18.0); IMM NEUT% 0.3 % (0-1); LYMPH # 2.6 (1.0-4.8); LYMPH % 33.6 % (15-45); MEAN CELL VOLUME 90.7 fl (80.0-94.0); MEAN CORPUSCULAR HEMOGLOBIN 31.3 pg (27.0-31.0); MEAN CORPUSCULAR HGB CONC 34.5 g/dl (33.0-37.0); MEAN PLATELET VOLUME 9.8 fl (7.4-10.4); MONO # 0.5 (0.0-0.8); MONO % 5.9 % (4-12); NEUT % 57.5 % (43-75); PLATELET COUNT 288 K/mm3 (130-400); RED CELL DISTRIBUTION WIDTH 13.1 % (11.5-14.5)
[2016-09-19 06:43] LABS: ALBUMIN 2.7 gm/dL (3.5-5.7); BLOOD UREA NITROGEN 4 mg/dL (7-25); BUN/CREATININE RATIO 7 (6-20); CALCIUM 8.2 mg/dL (8.6-10.3); GLOMERULAR FILTRATION RATE 136 mL/min (60-85)
[2016-09-19 06:45] LABS: ALT/SGPT < 5 U/L (7-52)
[2016-09-19] MEDS: D5 1/2NS with 20 mEq KCL 1,000 ML IV SCH ×2 (07:02→10:41)
[2016-09-19] MEDS: DOCUSATE SODIUM 100 MG CAPSULE PO SCH ×2 (08:46→21:32)
[2016-09-19] MEDS: QUETIAPINE FUMARATE 50 MG TABLET PO SCH ×2 (09:23→21:34)
[2016-09-19] MEDS: METOPROLOL TARTRATE 25 MG TABLET PO SCH ×3 (09:23→21:33)
[2016-09-19] MEDS: CARBIDOPA/LEVODOPA 25/100 1 EACH TABLET PO SCH ×3 (09:23→21:34)
[2016-09-19] MEDS: SILODOSIN 8 MG PO SCH (09:23)
--- NOTE | 2016-09-19 10:17 | PDOC43 ---
- Subjective Chief Complaint: fever, hematemesis Sitting up in chair, alert but not oriented. Approved for puree diet and honey thick liquids. does want PEG feeding if intake is not adequate. - Objective Vital Signs Temperature 98.5 F 09/19/16 07:46 Pulse Rate 74 09/19/16 07:46 Respiratory Rate 20 09/19/16 07:46 Blood Pressure 135/86 09/19/16 07:46 O2 Saturation by Pulse Oximetry 97 09/19/16 07:46 Oxygen Delivery Method Room Air Oxygen Flow Rate 0 Intake and Output 09/18/16 09/19/16 09/20/16 06:59 06:59 06:59 Intake Total 3383 1318 Output Total 2802 901 Balance 581 417 General: Alert, No Oriented x3, No Cooperative, No Acute Distress HEENT: Mucous membr. moist/pink Lungs: Clear to Auscultation Bilaterally Cardiovascular: Regular Rate and Rhythm Abdomen: Soft, Normal Bowel Sounds, No Tenderness, No Masses Extremities: Pulses Diminished but Palpable, No Edema Skin: Normal Color Neurological: Other (tremor and stiffness, sometimes mumbling sometimes speeking clearly) Psych/Mental Status: Flat Affect Laboratory 09/19/16 05:30 09/19/16 05:30 09/19/16 05:30 RBC 3.23 L MCH 31.3 H BUN 4 L Estimated GFR 136 H Calcium 8.2 L ALT < 5 L Total Protein 5.3 L Albumin 2.7 L Current Medications: Current meds reviewed in EMR. - Problems: Assessment/Plan (1) Aspiration pneumonia due to food (regurgitated) Qualifiers: Laterality: unspecified laterality Lung location: unspecified part of lung Qualifier Code: (J69.0) Pneumonitis due to inhalation of food and vomit Status: AcuteAssessment/Plan: Afebrile, no O2 requirement, change to oral antibiotics. (2) GI bleed Qualifiers: GI bleed type/associated pathology: unspecified gastrointestinal hemorrhage type Qualifier Code: (K92.2) Gastrointestinal hemorrhage, unspecified Status: AcuteAssessment/Plan: Suspect upper GI bleed. episode of hematemesis and fever at facility, Melena here at hospital, but no further episodes. Change to oral pantoprazole. Hgb stable. Not pursuing repeat endoscopy. (3) Hematuria Status: AcuteAssessment/Plan: due to moody trauma (4) Dysphagia Qualifiers: Dysphagia type: unspecified Qualifier Code: (R13.10) Dysphagia, unspecified Status: ChronicAssessment/Plan: Identified previous, suspect progressing as aspiration pneumonia likely with current clinical picture. Has improved and diet advanced. has decided she would want PEG even though she has been informed about side effects and continued aspiration along with it not extending life expectancy. (5) Anxiety Status: ChronicAssessment/Plan: continue current medications (6) Cachectic Status: ChronicAssessment/Plan: Cachexia, due to chronic disease and dysphagia, with concern for poor healing ability and low albumin level. Calorie counts to be done. (7) Lewy body Parkinson disease Status: ChronicAssessment/Plan: with profound stiffness, dsyphagia. Has improved with resolution of acute illness and reinstitution of usual medications (8) Paroxysmal atrial fibrillation Status: ChronicAssessment/Plan: monitoring for rapid HR. SO far, HR well controlled. Previously on anticoagulation, but would avoid anticoagulation due to GI bleeding. (9) Decubital ulcer Qualifiers: Pressure ulcer location: buttock Pressure ulcer stage: unstageable Laterality: unspecified laterality Qualifier Code: (L89.300) Pressure ulcer of unspecified buttock, unstageable Status: ChronicAssessment/Plan: present on admission, bilateral medial buttocks, Unstageable, but appear to be resolving, ulcerations 0.5 cm on L, 1.75 cm on R Continue care, appear to be healing. (10) Hypertension Qualifiers: Hypertension type: essential hypertension Qualifier Code: (I10) Essential (primary) hypertension Status: ChronicAssessment/Plan: continue current medications (11) Hypokalemia Status: AcuteAssessment/Plan: resolved (12) Acute blood loss anemia Status: AcuteAssessment/Plan: From presumed upper GI bleed, stable. VTE Prophylaxis: mechanical Disposition: Anticipating discharge to [facility] 09/20, appreciate managed care specialist care.
[2016-09-19] MEDS: CLINDAMYCIN HCL 150 MG CAPSULE PO SCH ×2 (12:04→18:19)
[2016-09-19] MEDS: DIAZEPAM 2 MG TABLET PO SCH ×2 (14:48→21:32)
[2016-09-19] MEDS ORDERED: BENZTROPINE MESYLATE 1 MG TABLET PO SCH (21:00)
[2016-09-19] MEDS: PANTOPRAZOLE 40 MG TABLET DR PO SCH (21:32)
[2016-09-19] MEDS: Ramelteon [Rozerem] 8 MG PO SCH (21:34)
[2016-09-20] MEDS: OXYCODONE HCL 5 MG TABLET PO PRN (01:07)
[2016-09-20] MEDS: CLINDAMYCIN HCL 150 MG CAPSULE PO SCH ×3 (01:07→12:27)
[2016-09-20] MEDS: FLECAINIDE ACETATE 50 MG TABLET PO SCH ×2 (02:38→05:17)
[2016-09-20 07:22] VITALS: BP 147/80
[2016-09-20] MEDS: PANTOPRAZOLE 40 MG TABLET DR PO SCH (08:24)
[2016-09-20] MEDS: METOPROLOL TARTRATE 25 MG TABLET PO SCH (08:25)
[2016-09-20] MEDS: SILODOSIN 8 MG PO SCH (08:25)
[2016-09-20] MEDS: QUETIAPINE FUMARATE 50 MG TABLET PO SCH (08:25)
[2016-09-20] MEDS: CARBIDOPA/LEVODOPA 25/100 1 EACH TABLET PO SCH (08:25)
[2016-09-20] MEDS: DOCUSATE SODIUM 100 MG CAPSULE PO SCH (08:26)
--- NOTE | 2016-09-20 11:34 | PDOC43 ---
- Subjective Chief Complaint: fever, hematemesis Patient reported to be doing ok. Answers questions some, but difficult to understand. - Objective Vital Signs Temperature 98.8 F 09/20/16 07:21 Pulse Rate 68 09/20/16 07:21 Respiratory Rate 30 09/20/16 07:21 Blood Pressure 147/80 09/20/16 07:21 O2 Saturation by Pulse Oximetry 98 09/20/16 07:21 Oxygen Delivery Method Room Air Oxygen Flow Rate 0 Vital Signs Last 12 Hours Temp Pulse Resp BP Pulse Ox 09/20/16 07:21 98.8 F 68 30 147/80 98 09/20/16 03:00 22 09/20/16 01:55 99.2 F 62 22 112/59 95 Intake and Output 09/18/16 09/19/16 09/20/16 23:59 23:59 23:59 Intake Total 4193 451 105 Output Total 2601 608 838 Balance 5262 157 -933 General: Other (awake, appears at ease.) Lungs: Clear to Auscultation Bilaterally Cardiovascular: Regular Rate and Rhythm Abdomen: Soft, Normal Bowel Sounds, Non-Distended Extremities: No Edema Neurological: Other (Still with rigidity, but tremor much improved.) Psych/Mental Status: Flat Affect Laboratory 09/19/16 05:30 09/19/16 05:30 09/20/16 01:15 POC Capillary Glucose 102 H Current Medications: Current meds reviewed in EMR. Active Medications Acetaminophen (Tylenol) 650 mg PO Q4H PRN PRN Reason: Pain or Temperature > 100.5 F Albuterol/Ipratropium (Duoneb) 3 ml NEB Q6H PRN PRN Reason: Wheezing Benzocaine/Menthol (Cepacol) 1 each PO PRN PRN PRN Reason: Sore Throat Benztropine Mesylate (Cogentin) 1 mg PO BEDTIME [facility] Last Admin: 09/19/16 21:31 Dose: 1 mg Bisacodyl (Dulcolax) 10 mg DE DAILY PRN PRN Reason: Constipation Bisacodyl (Dulcolax) 5 mg PO DAILY PRN PRN Reason: Constipation Carbidopa/Levodopa (Sinemet 25/100) 0.5 each PO TID [facility] Last Admin: 09/20/16 08:25 Dose: 0.5 each Clindamycin HCl (Cleocin) 300 mg PO Q6HR [facility] Last Admin: 09/20/16 05:17 Dose: 300 mg Diazepam (Valium) 1 mg PO 1400,2100 [facility] Last Admin: 09/19/16 21:32 Dose: 1 mg Docusate Sodium (Colace) 100 mg PO BID [facility] Last Admin: 09/20/16 08:26 Dose: Not Given Flecainide Acetate (Tambobor) 50 mg PO 0300,1700 [facility] Sodium Chloride (Sodium Chloride 0.9%) 100 mls @ 25 mls/hr IV PRN PRN PRN Reason: Flush Last Admin: 09/15/16 16:32 Dose: 25 mls/hr Magnesium Hydroxide (Milk Of Magnesia) 30 ml PO DAILY PRN PRN Reason: Constipation Metoprolol Tartrate (Lopressor) 25 mg PO TID [facility] Last Admin: 09/20/16 08:25 Dose: 25 mg Miscellaneous (Ramelteon [Rozerem]) 8 mg PO BEDTIME [facility] Last Admin: 09/19/16 21:34 Dose: 8 mg Miscellaneous (Silodosin [Rapaflo 8 Mg Capsule]) 8 mg PO DAILY [facility] Last Admin: 09/20/16 08:25 Dose: 8 mg Oxycodone HCl (Roxicodone) 2.5 - 7.5 mg PO Q4H PRN PRN Reason: Pain (Severe) Last Admin: 09/20/16 01:07 Dose: 5 mg Pantoprazole Sodium (Protonix) 40 mg PO BID [facility] Last Admin: 09/20/16 08:24 Dose: 40 mg Petrolatum/Paraffin/Mineral Oil (Blistex) 1 each TP PRN PRN PRN Reason: Dry and/or chapped lips Quetiapine Fumarate (Seroquel) 50 mg PO BID [facility] Last Admin: 09/20/16 08:25 Dose: 50 mg Sodium Chloride (Normal Saline 10ml Flush) 10 ml IV Q8HR [facility] Last Admin: 09/20/16 08:25 Dose: Not Given Sodium Chloride (Normal Saline 10ml Flush) 10 ml IV PRN PRN Last Admin: 09/18/16 13:54 Dose: 10 ml - Problems: Assessment/Plan (1) Aspiration pneumonia due to food (regurgitated) Qualifiers: Laterality: unspecified laterality Lung location: unspecified part of lung Qualifier Code: (J69.0) Pneumonitis due to inhalation of food and vomit Status: AcuteAssessment/Plan: Afebrile, no O2 requirement, on oral antibiotics. Swallowing improved this hospitalization, hope to be able to take adequate PO; did discuss with about future question of whether PEG desired. (previous note had indicated that PEG would be desired). (2) GI bleed Qualifiers: GI bleed type/associated pathology: unspecified gastrointestinal hemorrhage type Qualifier Code: (K92.2) Gastrointestinal hemorrhage, unspecified Status: AcuteAssessment/Plan: Suspect upper GI bleed. episode of hematemesis and fever at facility, Melena here at hospital, but no further episodes. Changed to oral pantoprazole. Hgb stable. Not pursuing repeat endoscopy. (3) Influenza and pneumonia Status: AcuteAssessment/Plan: Recent influenza, but suspect aspiration. Swallow evaluation with new regimen of thickened liquids/puree. (4) Dysphagia Qualifiers: Dysphagia type: unspecified Qualifier Code: (R13.10) Dysphagia, unspecified Status: ChronicAssessment/Plan: Identified previously, suspect progressing as aspiration pneumonia likely with current clinical picture. Has improved and diet advanced. has decided she would want PEG even though she has been informed about side effects and continued aspiration along with it not extending life expectancy. Follow up outpt (5) Cachectic Status: ChronicAssessment/Plan: Cachexia, due to chronic disease and dysphagia, with concern for poor healing ability and low albumin level. Calorie counts to be done. (6) Lewy body Parkinson disease Status: ChronicAssessment/Plan: with profound stiffness, dsyphagia. Has improved with resolution of acute illness and reinstitution of usual medications (7) Paroxysmal atrial fibrillation Status: ChronicAssessment/Plan: monitoring for rapid HR. SO far, HR well controlled. Previously on anticoagulation, but would avoid anticoagulation due to GI bleeding. (8) Decubital ulcer Qualifiers: Pressure ulcer location: buttock Pressure ulcer stage: unstageable Laterality: unspecified laterality Qualifier Code: (L89.300) Pressure ulcer of unspecified buttock, unstageable Status: ChronicAssessment/Plan: present on admission, bilateral medial buttocks, Unstageable, but appear to be resolving, ulcerations 0.5 cm on L, 1.75 cm on R On air bed Continue care, appear to be healing appropriately. VTE Prophylaxis: mechanical. Disposition: Anticipating discharge to [facility] 09/20, appreciate care assistant care.
[2016-09-20] MEDS: DIAZEPAM 2 MG TABLET PO SCH (13:46)
[2016-09-20] MEDS ORDERED: FLECAINIDE ACETATE 50 MG TABLET PO SCH (17:00)
--- NOTE | 2016-09-20 19:43 | DS ---
[place] MOTA [id number] DATE OF ADMISSION: September 15, 2016 DATE OF DISCHARGE: September 20, 2016 DISCHARGE DIAGNOSES: Are: 1. Suspected aspiration pneumonia due to food. 2. Hematemesis with upper gastrointestinal bleed, now stable. 3. Recent hospitalization for influenza. 4. Dysphagia. 5. Lewy body disease with Parkinsonism. 6. Paroxysmal atrial fibrillation not on anticoagulation due to gastrointestinal bleeding. 7. Concern for malnutrition. 8. Bilateral stage 2 buttock decubitus ulcers, now almost healed. 9. DO NOT RESUSCITATE status. 10. History of alcohol use discontinuing in 2012. 11. Hypertension. 12. Restless legs. 13. History of anxiety. CONSULTATIONS: Speech therapy recommending pureed foods and honey thick liquids on September 18, 2016. REASON FOR ADMISSION: The patient is a 66-year-old male hospitalized for influenza at [facility] discharged September 11, 2016. He was at his care facility, [facility], when he developed hematemesis with coffee ground appearing emesis so he was sent to [facility] for this along with fever. In the emergency department he was noted to have elevated white count and he had further hematemesis and a melanotic stool. CT of the abdomen was done which suggested a pneumonia as well, and he was referred to the hospitalist service for further care. His admission labs showed a white count of 16.6, hemoglobin 14.9, platelets 335, INR 1.43, lactate 1.7, BUN 21, creatinine 0.7, glucose 195, lipase 48. Liver enzymes were normal. Urinalysis with 3+ ketones, 1+ protein, negative glucose, 5 to 10 red cells, trace leukocyte esterase, 3 to 5 white cells. Chest x-ray had shown no acute pulmonary process but CT of the abdomen showed asymmetric air space disease within the left lower lobe more than expected, some thickening of the distal esophagus and rectum suggested. However, this was felt to be likely nonsignificant. Electrocardiogram shows atrial fibrillation 98 beats per minute. Patient was started on multiple antibiotics due to concerns for aspiration versus hospital acquired pneumonia versus post influenza pneumonia. He was continued on his Tamiflu and started on Levaquin and metronidazole in the emergency department and then because of widened QT, he was put on ceftriaxone, doxycycline, vancomycin, and metronidazole initially. Cultures were performed. Blood cultures were negative. Urine culture showed only contamination with minimal growth. His antibiotics were then revised to clindamycin. His Tamiflu was finished. IV fluids were given and oral medications were minimized due to swallowing difficulty. He had a speech therapy evaluation done initially which had suggested that he could only take pills in pudding, but later as he improved, he was felt to be safe for honey thick liquids with pureed foods. His decubitus ulcers were treated with topical wound care plus frequent position changes and an air bed. He developed good improvement and by September 18, 2016 was able to walk with assistance. His followup chest x-ray did not show evidence of pneumonia. He had a maximum temperature of 101.3 on September 15, 2016 but had been afebrile for 72 hours. Discussion was carried out with the regarding whether PEG tube placement was needed, but by September 18, 2016, it was felt that he should have an adequate chance at taking appropriate oral intake although this will be a concern for later. By September 20, 2016, he was felt to be safe for [facility]. DISCHARGE MEDICATIONS; 1. He is anticipated to be discharged on clindamycin 300 mg orally every six hours times five days. 2. Lip balm as needed. 3. Benztropine 1 mg at bedtime. 4. Docusate sodium 100 mg twice daily. 5. Dulcolax suppository 10 mg as needed. 6. Duoneb every six hours as needed. 7. Metoprolol 25 mg orally three times daily. 8. Diazepam 2 mg at 1400 and 2100. 9. Cholecalciferol 50,000 units on . 10. Rapaflo 8 mg orally daily. 11. Rozerem 8 mg at bedtime. 12. Aciphex 20 mg orally daily. 13. Quetiapine 50 mg orally twice daily. 14. Peradoxime 100 mg orally daily. 15. Oxycodone 5 to 15 mg orally every four as needed for severe pain. 16. Folic acid 1 orally daily. 17. Flecainide 50 mg orally at 3 a.m. and 3 p.m. 18. Sinemet CR 25/100 one-half orally three times daily. 19. His lisinopril and Tamiflu were stopped. FOLLOWUP: Followup is with Peggy Coburn M.D. and Dr. Flash Zepeda. CODE STATUS: DO NOT RESUSCITATE. Cc: Flash Zepeda M.D. Peggy Coburn M.D. Mable Dutta M.D.
== END 2016-09-20 14:00 | DRG 178 ==
LOC: ED 06:40 → MS 09:21
PROVIDERS: ADMIT Family Medicine; ATTEND Family Medicine
DX: J69.0 Pneumonitis due to inhalation of food and vomit (principal); K92.2 Gastrointestinal hemorrhage, unspecified; E46 Unspecified protein-calorie malnutrition; F41.9 Anxiety disorder, unspecified; F10.21 Alcohol dependence, in remission; I10 Essential (primary) hypertension; G25.81 Restless legs syndrome; E78.5 Hyperlipidemia, unspecified; G31.83 Neurocognitive disorder with Lewy bodies; F02.80 Dementia in other diseases classified elsewhere, unspecified severity, without behavioral disturbance, psychotic disturbance, mood disturbance, and anxiety; I48.91 Unspecified atrial fibrillation; L89.322 Pressure ulcer of left buttock, stage 2; L89.312 Pressure ulcer of right buttock, stage 2; I48.0 Paroxysmal atrial fibrillation; Z66 Do not resuscitate; D18.09 Hemangioma of other sites